=== PATIENT | male | born 1995 | race Caucasian/White ===

== ENCOUNTER 2018-12-23 03:39 | Emergency (ER) | payer OTHER ==
[2018-12-23 03:54] VITALS: BP 128/70
[2018-12-23] MEDS ORDERED: HYDROcod/ACET 5/325 Prepack 4 PO STA (04:14)
--- NOTE | 2018-12-23 04:16 | ED Physician Documentation ---
PD HPI LOWER EXT INJURY - Stated complaint Stated Complaint: L ANKLE PX - Chief complaint Chief Complaint: Ext Problem - History obtained from History obtained from: Patient, Friend - History of Present Illness PD HPI LOW EXT INJURY LOCATION: Left, Ankle Type of injury: Twist Where injury occurred: Home Timing - onset: Today Timing - duration: Minutes Timing - details: Abrupt onset, Still present in ED Improved by: Rest, Ice, Immobilization Worsened by: Moving, Palpating Associated symptoms: Swelling. No: Weakness, Numbness, Tingling Contributing factors: No: Anticoagulated Similar symptoms before: Has not had sx before Recently seen: Not recently seen - Additional information Additional information: 23-year-old male stepped out of bed this morning stepped onto a pillow and twisted his ankle. He has a lot of pain to the lateral aspect of the ankle. He is able to bear some weight. Review of Systems Constitutional: denies: Fever Eyes: denies: Decreased vision Respiratory: denies: Dyspnea, Cough GI: denies: Vomiting PD PAST MEDICAL HISTORY - Past Medical History Past Medical History: No Cardiovascular: None Respiratory: None Neuro: None Endocrine/Autoimmune: None GI: None : None HEENT: None Psych: None Musculoskeletal: None Derm: None - Past Surgical History Past Surgical History: No - Allergies Allergies/Adverse Reactions: Allergies Allergy/AdvReac Type Severity Reaction Status Date / Time No Known Drug Allergies Allergy Verified 12/23/18 03:54 - Social History Does the pt smoke?: Yes Smoking Status: Current every day smoker Does the pt drink ETOH?: Yes Does the pt have substance abuse?: No - Immunizations Immunizations are current?: Yes - POLST Patient has POLST: No PD ED PE NORMAL - Vitals Vital signs reviewed: Yes (normal ) - General General: Alert and oriented X 3, No acute distress, Well developed/nourished - HEENT HEENT: Atraumatic, PERRL, EOMI - Respiratory Respiratory: No respiratory distress - Derm Derm: Normal color, Warm and dry, No rash - Extremities Extremities: No deformity, No edema, No calf tenderness / cord, Other (There is pain over the talo-fibular ligament and not much swelling. There is no tenderness to the proximal 5th. 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, No motor deficit, No sensory deficit, Normal speech Eye Opening: Spontaneous Motor: Obeys Commands Verbal: Oriented GCS Score: 15 - Psych Psych: Normal mood, Normal affect Results - Vitals Vitals: Vital Signs - 24 hr 12/23/18 12/23/18 03:52 04:31 Temperature 36.8 C Heart Rate 69 Respiratory 16 16 Rate Blood Pressure 128/70 O2 Saturation 100 Oxygen O2 Source Room air - Rads (name of study) ankle L Radiology: Prelim report reviewed (Impression: Soft tissue swelling, but no evidence of acute fracture.), EMP read indepedently, See rad report Procedures - Splint (location) left ankle Splint applied by: Tech Type of splint: Ankle airsplint Other: Patient tolerated well, No complications, Neurovascular intact, Good alignment PD MEDICAL DECISION MAKING - ED course Complexity details: reviewed results, re-evaluated patient, considered alicia ellis, d/w patient ED course: 23-year-old male with a sprained left ankle is placed into an Aircast. Departure - Departure Disposition: 01 Home, Self Care Clinical Impression: Left ankle sprain Qualifiers: Encounter type: initial encounter Involved ligament of ankle: calcaneofibular ligament Qualified Code(s): S93.412A - Sprain of calcaneofibular ligament of left ankle, initial encounter Condition: Stable Instructions: ED Sprain Ankle W X Ray Follow-Up: DUANE Rider [Provider Group]
--- NOTE | 2018-12-23 04:35 | XRAY Report ---
Reason: ROLLED/ POPPED L ANKLE Procedure Date: 12/23/2018 Accession Number: [id number] / [id number] Procedure: XR - Ankle 3 View LT CPT Code: FULL RESULT: EXAM: LEFT ANKLE RADIOGRAPHY EXAM DATE: 12/23/2018 03:51 AM. CLINICAL HISTORY: Pain status post rolled ankle COMPARISON: None. TECHNIQUE: 3 views. FINDINGS: Bones: Normal. No fractures or bone lesions. Accessory ossicle inferior to the medial malleolus. Joints: Normal. No effusion. No subluxations. The ankle mortise is normally aligned. Soft Tissues: Soft tissue swelling laterally. No radiopaque foreign body. IMPRESSION: Soft tissue swelling, but no evidence of acute fracture. [facility]
== END 2018-12-23 04:39 | disposition home or self-care (01) ==
LOC: ED 03:39
DX: S93.412A Sprain of calcaneofibular ligament of left ankle, initial encounter (principal); X50.1XXA Overexertion from prolonged static or awkward postures, initial encounter; Y93.89 Activity, other specified; Y92.003 Bedroom of unspecified non-institutional (private) residence as the place of occurrence of the external cause; F17.200 Nicotine dependence, unspecified, uncomplicated
CPT/HCPCS: 99282; 99283